=== PATIENT | female | born 1965 | race Caucasian/White ===

== ENCOUNTER 2021-06-26 10:59 | Day surgery (SDC) | payer OTHER ==
[2021-06-23 11:50] VITALS: BMI 29.6
[2021-06-26] MEDS ORDERED: Lidocaine 1% MPF 2 ML VIAL ONE (11:19)
[2021-06-26] MEDS ORDERED: PROPOFOL 40 ML ONE (12:57)
[2021-06-26] MEDS ORDERED: PROPOFOL 20 ML ONE ×2 (13:05→13:13)
== END 2021-06-26 14:08 | disposition home or self-care (01) ==
LOC: CSHSDC 10:59
PROVIDERS: ATTEND Internal Medicine Gastroenterology
PROC: 0DB58ZZ Excision of Esophagus, Via Natural or Artificial Opening Endoscopic (ICD-10-PCS; principal; 2021-06-26)
DX: K21.00 Gastro-esophageal reflux disease with esophagitis, without bleeding (principal); R13.10 Dysphagia, unspecified; Z98.84 Bariatric surgery status; Z86.010 Personal history of colon polyps; E11.9 Type 2 diabetes mellitus without complications; F32.A Depression, unspecified; G47.30 Sleep apnea, unspecified
CPT/HCPCS: 88305; J2704